=== PATIENT | male | born 1945 | race Caucasian/White ===

== ENCOUNTER 2018-07-10 09:57 | Emergency (ER) | payer OTHER ==
[2018-07-10] MEDS ORDERED: ISOVUE-370 76%-LOCM 1 ML ONE (10:09)
[2018-07-10] MEDS ORDERED: Nitroglycerin 2% Ointment 1 INCH/1 GM Packet ONE (10:23)
[2018-07-10 10:38] LABS: #Basophils 0.1 thou/uL (0.0-0.2); #Eosinphils 0.2 thou/uL (0.0-0.7); #Monocytes 0.8 thou/uL (0.11-0.59); #Neutrophils 5.9 thou/uL (1.40-6.50); %Basophils 0.6 % (0.0-1.0); %Eosinophils 2.3 % (0.0-10.0); %Lymphocytes 22.1 % (21.0-51.0); %Monocytes 8.6 % (0.0-10.0); %Neutrophils 66.4 % (42.0-75.0); Hemoglobin 14.8 g/dL (14.0-18.0); Mean Corpuscular HGB CONC 32.2 g/dL (32.0-36.0); Mean Corpuscular Hemoglobin 30.1 pg (27.0-31.0); Mean Corpuscular Volume 93.2 fL (78.0-98.0); Mean Platelet Volume 7.6 fL (7.4-10.4); Platelet Count 222 thou/uL (130-400); Red Blood Cell (RBC) Count 4.93 mill/uL (4.70-6.10); White Blood Cell (WBC) Count 8.9 thou/uL (4.8-10.8)
[2018-07-10 10:54] LABS: ALT (SGPT) 21 U/L (8-55); AST (SGOT) 25 U/L (5-34); Albumin 4.5 g/dL (3.4-4.8); Alkaline Phosphatase 85 U/L (40-150); Anion Gap 14 mmol/L (10-20); BUN (Urea Nitrogen) 23 mg/dL (8.4-25.7); Bilirubin, Total 0.9 mg/dL (0.2-1.2); Calc. Creatinine Clearance 0 mL/min (70-130); Calcium 10.1 mg/dL (7.8-10.44); Carbon Dioxide 26 mmol/L (23-31); Chloride 103 mmol/L (98-107); Estimated GFR-MDRD 53; Glucose 128 mg/dL (83-110); Lipase 36 U/L (8-78); Potassium 4.6 mmol/L (3.5-5.1); Protein, Total 8.5 g/dL (5.8-8.1); Sodium 138 mmol/L (136-145)
--- NOTE | 2018-07-10 11:44 | CT ---
CTA THORAX WITH IV CONTRAST UTILIZING 3D REFORMATTED IMAGING AND PE PROTOCOL: Date: 07/10/18 COMPARISON: None. FINDINGS: No central or segmental pulmonary embolus is evident. There are vascular calcifications involving the thoracic aorta and coronary arteries. There are mildly prominent lymph nodes seen within the right paratracheal region and prevascular spac es of the mediastinum. The largest lymph node measures 5.5 mm within the prevascular space. There are patchy areas of peripheral and interstitial air space opacities seen within both lungs, whi ch is nonspecific and may reflect interstitial edema or possibly an atypical infectious process. Dillan mmend correlation. Visualized adrenal glands appear within normal limits. 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 There is diffuse osteopenia. There is scattered degenerative and osteoarthritic jina nge. IMPRESSION: 1. No central or segmental pulmonary embolus. 2. Patchy areas of peripheral interstitial and air space opacity are nonspecific and can be seen wit h pulmonary edema, atypical infectious process, or interstitial lung disease. Recommend correlation. 3. Mildly prominent mediastinal lymph nodes. 4. Postsurgical change of prior CABG. POS: SVETLANA
[2018-07-10] MEDS ORDERED: Aspirin 325 MG TAB ONE (11:55)
[2018-07-10] MEDS ORDERED: Aspirin 81 mg Enteric Coated Tablet ONE (12:00)
--- NOTE | 2018-07-10 15:38 | CT ---
CT OF THE BRAIN WITHOUT CONTRAST: Date: 07/10/18 COMPARISON: None. HISTORY: Syncope while playing golf. TECHNIQUE: Multiple contiguous axial images were obtained in a CT of the brain without contrast. FINDINGS: The brain is normal in morphology and attenuation without focal lesions or confluent areas of infarct ion. There is persistent enhancement on this examination from recent contrast examination. There is n o evidence of hydrocephalus, intracranial hemorrhage, or extra-axial fluid collection. Evaluation for hemorrhage is limited secondary to the prior contrast administration. The calvarium and overlying soft tissues are unremarkable. The visualized paranasal sinuses and masto id air cells are well aerated. IMPRESSION: No evidence of acute intracranial abnormality. POS: C
[2018-07-10 20:01] LABS: Troponin I Less than 0.010 ng/mL (< 0.028)
== END 2018-07-10 20:37 | disposition short-term general hospital (02) ==
LOC: ERS 09:57
DX: R55 Syncope and collapse (principal); R07.89 Other chest pain; E11.9 Type 2 diabetes mellitus without complications; I25.10 Atherosclerotic heart disease of native coronary artery without angina pectoris; I10 Essential (primary) hypertension; Z79.891 Long term (current) use of opiate analgesic; Z79.4 Long term (current) use of insulin; Z79.82 Long term (current) use of aspirin; Z79.899 Other long term (current) drug therapy
CPT/HCPCS: 36415; 36416; 70450; 71275; 80053; 83690; 84484; 85025; 93005; Q9966

== ENCOUNTER 2019-02-26 16:37 | Emergency (ER) | payer OTHER ==
[2019-02-26] MEDS ORDERED: Meclizine HCl 25 MG TAB ONE (17:05)
[2019-02-26 17:08] LABS: #Eosinphils 0.2 thou/uL (0.0-0.7); #Monocytes 0.7 thou/uL (0.11-0.59); #Neutrophils 4.4 thou/uL (1.40-6.50); %Basophils 0.2 % (0.0-1.0); %Eosinophils 2.8 % (0.0-10.0); %Lymphocytes 27.5 % (21.0-51.0); %Monocytes 9.9 % (0.0-10.0); %Neutrophils 59.6 % (42.0-75.0); Mean Corpuscular HGB CONC 33.6 g/dL (32.0-36.0); Mean Corpuscular Volume 95.3 fL (78.0-98.0); Mean Platelet Volume 7.2 fL (7.4-10.4); Platelet Count 211 thou/uL (130-400); RBC Distribution Width 11.3 % (11.5-14.5); Red Blood Cell (RBC) Count 4.38 mill/uL (4.70-6.10); White Blood Cell (WBC) Count 7.4 thou/uL (4.8-10.8)
--- NOTE | 2019-02-26 17:13 | RAD ---
Exam: Chest one view HISTORY:Lightheadedness Comparison: 08/02/2015 FINDINGS: Lungs: Mild interstitial prominence at the perihilar regions Cardiac silhouette/Mediastinum:Stable postoperative appearance Pulmonary vessels: Mild prominence Pleural Spaces: No significant effusion Pneumothorax: None Osseous abnormalities: None of acuity. IMPRESSION: CHF
--- NOTE | 2019-02-26 17:16 | CT ---
CT Brain WO Con: 02/26/2019 5:02 PM CLINICAL HISTORY: Vertigo. COMPARISON: 07/10/2018 FINDINGS: Hemorrhage: None. Ventricular system: Normal in size and morphology for the patient's age. Cerebral parenchyma: Microvascular ischemic disease Midline shift: None. Mass: No mass effect. Calvarium: Normal. Visualized Paranasal sinuses: Clear. IMPRESSION: No acute intracranial abnormalities.
[2019-02-26 17:33] LABS: ALT (SGPT) 19 U/L (8-55); AST (SGOT) 21 U/L (5-34); Albumin 4.3 g/dL (3.4-4.8); Alkaline Phosphatase 65 U/L (40-110); Anion Gap 13 mmol/L (10-20); BUN (Urea Nitrogen) 18 mg/dL (8.4-25.7); Bilirubin, Total 0.5 mg/dL (0.2-1.2); Calc. Creatinine Clearance 0 mL/min (70-130); Calcium 9.7 mg/dL (7.8-10.44); Carbon Dioxide 25 mmol/L (23-31); Chloride 104 mmol/L (98-107); Estimated GFR-MDRD 69; Globulin 3.6 g/dL (2.4-3.5); Glucose 112 mg/dL (83-110); Potassium 4.5 mmol/L (3.5-5.1); Protein, Total 7.9 g/dL (5.8-8.1); Sodium 137 mmol/L (136-145)
--- NOTE | 2019-02-28 14:43 | EKG ---
Test Reason : Blood Pressure : / mmHG Vent. Rate : 067 BPM Atrial Rate : 067 BPM P-R Int : 194 ms QRS Dur : 088 ms QT Int : 390 ms P-R-T Axes : 029 -18 013 degrees QTc Int : 412 ms Normal sinus rhythm Minimal voltage criteria for LVH, may be normal variant Cannot rule out Anterior infarct , age undetermined Abnormal ECG Confirmed by LYNDON BROWNLEE DO ([id number]), industrial editor HA HATR ([id number] on 02/28/2019 2:42:57 PM Referred By: Confirmed By:LYNDON BROWNLEE DO
== END 2019-02-26 20:16 | disposition home or self-care (01) ==
LOC: ERS 16:37
DX: R42 Dizziness and giddiness (principal); E11.9 Type 2 diabetes mellitus without complications; I25.10 Atherosclerotic heart disease of native coronary artery without angina pectoris; I10 Essential (primary) hypertension; Z95.5 Presence of coronary angioplasty implant and graft; Z79.82 Long term (current) use of aspirin; Z79.01 Long term (current) use of anticoagulants; Z79.4 Long term (current) use of insulin; Z79.899 Other long term (current) drug therapy
CPT/HCPCS: 70450; 71045; 80053; 84484; 85025; 93005; 96360; J8597

== ENCOUNTER 2021-05-25 13:06 | Outpatient (CLI) | payer OTHER | END 2021-05-25 13:07 | disposition home or self-care (01) | LOC: ULT 13:06 | DX: I73.9 Peripheral vascular disease, unspecified (principal); M79.605 Pain in left leg | CPT/HCPCS: 93922 ==